=== PATIENT | male | born 1970 | race African-American/Black ===

== ENCOUNTER 2020-12-01 23:44 | Emergency (ER) | payer MEDICARE, MEDICAID ==
[~2020-12-01] VITALS: Ht 182.9 cm; Wt 69.0 kg
[2020-12-02 03:05] VITALS: BP 121/66
== END 2020-12-02 02:20 | disposition home or self-care (01) ==
LOC: ER 23:44
DX: R53.1 Weakness (principal); F10.129 Alcohol abuse with intoxication, unspecified; Y90.9 Presence of alcohol in blood, level not specified; F41.9 Anxiety disorder, unspecified; Z88.6 Allergy status to analgesic agent
CPT/HCPCS: 99283